=== PATIENT | female | born 2000 ===

== ENCOUNTER 2018-02-26 12:56 | Emergency (ER) | payer OTHER ==
[2018-02-26 13:07] VITALS: BMI 26.5
[2018-02-26 13:14] VITALS: TEMP 98
[2018-02-26 14:29] LABS: BASO # 0.1 K/uL (0.0-0.2); BASO % 0.8 % (0.0-2.0); EOS # 0.6 K/uL (0.0-0.7); EOS % 5.4 % (0.0-4.0); HEMOGLOBIN 14.6 g/dL (11.0-16.0); LYMPH # 1.9 K/uL (1.0-4.3); LYMPH % 18.3 % (20.0-40.0); MEAN CELL VOLUME 88.6 fL (81.0-99.0); MEAN CORPUSCULAR HEMOGLOBIN 30.3 pg (27.0-31.0); MEAN CORPUSCULAR HGB CONC 34.3 g/dL (33.0-37.0); MEAN PLATELET VOLUME 9.4 fL (7.2-11.7); MONO # 0.5 K/uL (0.0-0.8); MONO % 4.5 % (0.0-10.0); NEUT # 7.5 K/uL (1.8-7.0); RBC 4.8 Mil/uL (3.80-5.20); RED CELL DISTRIBUTION WIDTH 13.4 % (11.5-14.5); WHITE BLOOD COUNT 10.6 K/uL (4.8-10.8)
[2018-02-26 14:42] LABS: HCG,QUALITATIVE URINE NEGATIVE (NEGATIVE)
[2018-02-26 14:43] LABS: ALB/GLOB RATIO 1.1 (1.0-2.1); ALBUMIN 3.9 g/dL (3.5-5.0); ALT/SGPT 20 U/L (9-52); AST/SGOT 21 U/L (14-36); BLOOD UREA NITROGEN 8 mg/dL (7-17); CALCIUM 8.7 mg/dl (8.6-10.4); GFR AFRICAN-AMERICAN > 60; GFR NON-AFRICAN AMERICAN > 60
[2018-02-26 14:44] LABS: SQUAMOUS EPITHIAL 2 /hpf (0-5); URINE BACTERIA OCC (<OCC); URINE BILIRUBIN NEGATIVE (NEGATIVE); URINE BLOOD NEGATIVE (NEGATIVE); URINE CLARITY Hazy (Clear); URINE COLOR Yellow (YELLOW); URINE GLUCOSE (UA) NORMAL (Normal); URINE LEUKOCYTE ESTERASE NEG Leu/uL (Negative); URINE PROTEIN NEGATIVE (NEGATIVE)
[2018-02-26 15:09] LABS: BARBITURATES, UR NEGATIVE (NEGATIVE); BENZODIAZEPINES, UR NEGATIVE (NEGATIVE); OPIATES, UR NEGATIVE (NEGATIVE); PHENCYCLIDINE, UR NEGATIVE (NEGATIVE)
[2018-02-26 15:18] LABS: B-TYPE NATRIURETIC PEPTIDE 106 pg/mL (0-450)
--- NOTE | 2018-02-26 15:37 | RAD ---
HISTORY: SOB COMPARISON: No prior. TECHNIQUE: Chest PA and lateral FINDINGS: LUNGS: No active pulmonary disease. PLEURA: No significant pleural effusion identified. No pneumothorax apparent. CARDIOVASCULAR: Normal. OSSEOUS STRUCTURES: No significant abnormalities. VISUALIZED UPPER ABDOMEN: Normal. OTHER FINDINGS: None. IMPRESSION: No active disease. Concordant results with the preliminary interpretation rendered by the emergency department physician procedure.
[2018-02-26 15:50] LABS: PARTIAL THROMBOPLASTIN TIME 30 SECONDS (21-34); PROTHROMBIN TIME 11.5 SECONDS (9.7-12.2)
[2018-02-26 15:58] LABS: D DIMER < 200 ng/mlDDU (0-243)
--- NOTE | 2018-02-26 16:09 | C.PDOC ---
History Of Present Illness 17 year old female presents to the ED for evaluation of occasional palpitations which began around 1 week ago. Patient also reports experiencing dysuria for 3 days. Patient reports having unprotected sexual intercourse, denies any new partners. Patient denies fever, chills, chest pain, shortness of breath. Time Seen by Provider: 02/26/18 13:53 Chief Complaint (Nursing): Palpitations History Per: Patient History/Exam Limitations: no limitations Onset/Duration Of Symptoms: Days Current Symptoms Are (Timing): Still Present Quality Of Discomfort: denies: "Pain" Associated Symptoms: Urinary Symptoms (dysuria ). denies: Fever, Chills Additional History Per: Patient Past Medical History Reviewed: Historical Data, Nursing Documentation, Vital Signs Vital Signs: Last Vital Signs Temp 98.0 F 02/26/18 16:28 Pulse 89 02/26/18 16:28 Resp 16 02/26/18 16:28 BP 111/76 02/26/18 16:28 Pulse Ox 99 02/26/18 18:52 - Medical History PMH: No Chronic Diseases Surgical History: No Surg Hx Family History: States: Unknown Family Hx - Social History Hx Alcohol Use: Yes Hx Substance Use: No - Immunization History Hx Tetanus Toxoid Vaccination: No Hx Influenza Vaccination: No Hx Pneumococcal Vaccination: No Review Of Systems Constitutional: Negative for: Fever, Chills Cardiovascular: Positive for: Palpitations. Negative for: Chest Pain Respiratory: Negative for: Shortness of Breath Genitourinary: Positive for: Dysuria Physical Exam - Physical Exam Appears: Non-toxic, No Acute Distress, Other (obese female ) Skin: Normal Color, Warm, Dry Head: Atraumatic, Normacephalic Eye(s): bilateral: Normal Inspection Oral Mucosa: Moist Neck: Supple Chest: Symmetrical, No Deformity, No Tenderness Cardiovascular: Rhythm Regular, No Murmur Respiratory: Normal Breath Sounds, No Rales, No Rhonchi, No Wheezing Gastrointestinal/Abdominal: Soft, No Tenderness, No Guarding, No Rebound Extremity: Normal ROM, Capillary Refill (less than 2 seconds ) Neurological/Psych: Oriented x3, Normal Speech, Normal Cognition ED Course And Treatment - Laboratory Results Result Diagrams: 02/26/18 14:23 02/26/18 14:23 Lab Interpretation: Normal (trop, bnp, d-dimer neg.) Urine POC: Negative (, UA 3 WBC's) O2 Sat by Pulse Oximetry: 99 (on RA) Pulse Ox Interpretation: Normal Progress Note: Bloodwork, urinalysis, EKG, CXR, Chlamydia/GC swab ordered. Rocephin IM and Zithromax PO administered. Medical Decision Making Medical Decision Making: tachycardia, palps, normal w/u UA/preg neg LOW susp of GC/Chlamydia- but urine text is a send-out with "a few days" turn around treat empirically and f/u as opt. Disposition Doctor Will See Patient In The: Office Counseled Patient/Family Regarding: Studies Performed, Diagnosis - Disposition Referrals: Francois Ruiz MD [Medical Doctor] - Disposition: HOME/ ROUTINE Disposition Time: 16:07 Condition: GOOD Additional Instructions: you were treated empirically for GC/Chlamydia with Rocephin 250 mg IM and Azithromycin 1000 mg PO this constitutes a COMPLETE treatment for GC/Chlamydia and no further outpatient meds required. follow-up the send-out urine for GC/Chlamydia with Dr. Ruiz in about 3 days. Have your sexual partner(s) evaluated for same. Instructions: Palpitations, Dysuria, Adult (DC) Forms: [employer] (French) - Clinical Impression Clinical Impression: Palpitations, Dysuria - Scribe Statement The provider has reviewed the documentation as recorded by the Scribe (Mercedez Vieyra) Provider Attestation: All medical record entries made by the Scribe were at my direction and personally dictated by me. I have reviewed the chart and agree that the record accurately reflects my personal performance of the history, physical exam, medical decision making, and the department course for this patient. I have also personally directed, reviewed, and agree with the discharge instructions and disposition.
[2018-02-26] MEDS ORDERED: cefTRIAXone (Rocephin) 250 mg Inj IM STA (16:10)
[2018-02-26 16:28] VITALS: BP 111/76; PULSE 89; RESP 16
[2018-02-26 18:31] VITALS: O2SAT 99
--- NOTE | 2018-03-01 10:18 | CARD ---
APPROVED REPORT EKG Measurement Heart [id number] <Conclusion> Sinus tachycardia Otherwise normal ECG
== END 2018-02-26 16:38 | disposition home or self-care (01) ==
LOC: C.ER 12:56
DX: R00.2 Palpitations (principal); R30.0 Dysuria
CPT/HCPCS: 71046; 80053; 80324; 80345; 80346; 80349; 80353; 80358; 80361; 81001; 83880; 83992; 84484; 84703; 85025; 85378; 85610; 85730; 87491; 87591; 96372; 99284; J0696

== ENCOUNTER 2018-10-01 20:25 | Emergency (ER) | payer OTHER ==
[2018-10-01 20:25] VITALS: BMI 26.5
[2018-10-01 20:37] VITALS: BP 151/90; PULSE 95; RESP 18; TEMP 98.2; O2SAT 100
[2018-10-01 20:56] LABS: HCG,QUALITATIVE URINE NEGATIVE (NEGATIVE)
[2018-10-01 21:04] LABS: SQUAMOUS EPITHIAL 2 /hpf (0-5); URINE BACTERIA MOD (<OCC); URINE BILIRUBIN NEGATIVE (NEGATIVE); URINE BLOOD 2+ (NEGATIVE); URINE CLARITY Hazy (Clear); URINE COLOR Yellow (YELLOW); URINE GLUCOSE (UA) NORMAL (Normal); URINE LEUKOCYTE ESTERASE 3+ Leu/uL (Negative); URINE PROTEIN 2+ mg/dL (NEGATIVE)
--- NOTE | 2018-10-01 21:10 | C.PDOC ---
History Of Present Illness 18 y/o female presents to the ED complaining of suprapubic pain and dysuria that began 2 days ago. Patient denies any hematuria, fever, chills, or back pain. No other complaints offered at this time. Time Seen by Provider: 10/01/18 20:38 Chief Complaint (Nursing): Female Genitourinary History Per: Patient History/Exam Limitations: no limitations Onset/Duration Of Symptoms: Days (x3) Current Symptoms Are (Timing): Still Present Associated Symptoms: Urinary Symptoms Past Medical History Reviewed: Historical Data, Nursing Documentation, Vital Signs Vital Signs: Last Vital Signs Temp 98.2 F 10/01/18 20:34 Pulse 95 H 10/01/18 20:34 Resp 18 10/01/18 20:34 BP 151/90 H 10/01/18 20:34 Pulse Ox 100 10/01/18 20:34 - Medical History PMH: No Chronic Diseases Surgical History: No Surg Hx Family History: States: Unknown Family Hx - Social History Hx Tobacco Use: No Hx Alcohol Use: Yes Hx Substance Use: No - Immunization History Hx Tetanus Toxoid Vaccination: No Hx Influenza Vaccination: No Hx Pneumococcal Vaccination: No Review Of Systems Constitutional: Negative for: Fever, Chills Gastrointestinal: Positive for: Abdominal Pain. Negative for: Nausea, Vomiting, Diarrhea Genitourinary: Positive for: Dysuria. Negative for: Frequency, Hematuria Physical Exam - Physical Exam Appears: Well, Non-toxic, No Acute Distress Skin: Warm, Dry Head: Atraumatic, Normacephalic Eye(s): bilateral: PERRL, EOMI Oral Mucosa: Moist Neck: Normal ROM, Supple Chest: Symmetrical Cardiovascular: Rhythm Regular, No Friction Rub, No Murmur Respiratory: No Accessory Muscle Use, Other (speaking in full sentences) Gastrointestinal/Abdominal: Bowel Sounds (active), Soft, Tenderness (mild suprapubic tenderness), No Distention, No Guarding Back: Normal Inspection, No CVA Tenderness Extremity: Normal ROM, No Swelling Extremity: Bilateral: Atraumatic, Normal Color And Temperature Neurological/Psych: Oriented x3, Normal Speech, Normal Motor Gait: Steady ED Course And Treatment O2 Sat by Pulse Oximetry: 100 (RA) Pulse Ox Interpretation: Normal Medical Decision Making Medical Decision Making: Plan: UA and urine culture sent. UA (+) for leuks, WBC, and bacteria. Counseled patient regarding treatment and follow-up instructions. Disposition - Disposition Referrals: Non [facility] Provider, [Primary Care Provider] - Disposition: HOME/ ROUTINE Disposition Time: 21:39 Condition: STABLE Additional Instructions: Follow up with the medical doctor within 1-2 days. Return if worsened. Prescriptions: Ciprofloxacin [Cipro] 1 tab PO BID #14 tab Phenazopyridine HCl [Pyridium] 200 mg PO TID #7 tablet Instructions: Urinary Tract Infections in Adults Forms: [employer] (Guatemalan) - Clinical Impression Clinical Impression: UTI (urinary tract infection) - PA / ENVIRONMENTAL MANAGER / Resident Statement MD/DO has reviewed & agrees with the documentation as recorded. - Scribe Statement The provider has reviewed the documentation as recorded by the Scribe (Ladonna Huang) All medical record entries made by the Scribe were at my direction and personally dictated by me. I have reviewed the chart and agree that the record accurately reflects my personal performance of the history, physical exam, medical decision making, and the department course for this patient. I have also personally directed, reviewed, and agree with the discharge instructions and disposition.
== END 2018-10-01 22:03 | disposition home or self-care (01) ==
LOC: SUPCPDRO 20:25 → C.ER 20:25
DX: N39.0 Urinary tract infection, site not specified (principal)